=== PATIENT | female | born 1995 | race Hispanic/Latino ===

== ENCOUNTER 2019-06-26 06:04 | Emergency (ER) | payer BC ==
[2019-06-26] MEDS ORDERED: ORPHENADRINE CITRATE 30 MG/ML ML ONE (06:48)
[2019-06-26] MEDS ORDERED: KETOROLAC TROMETHAMINE 60 MG/2 ML VIAL ONE (06:48)
== END 2019-06-26 08:10 | disposition home or self-care (01) ==
LOC: EDH 06:04
DX: G43.909 Migraine, unspecified, not intractable, without status migrainosus (principal); M62.838 Other muscle spasm; Z90.49 Acquired absence of other specified parts of digestive tract; Z72.0 Tobacco use
CPT/HCPCS: 70450; 81025; 96372 ×2; 99284; J1885; J2360